=== PATIENT | female | born 2000 | race Caucasian/White ===

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

== ENCOUNTER → 2019-02-22 18:31 | Outpatient (CLI) | payer OTHER, MEDICAID, SELFPAY | PROVIDERS: Family Provider Internal Medicine; PCP Family Medicine; Visit Provider Physician Assistant | DX: J02.9 Acute pharyngitis, unspecified (principal) | CPT/HCPCS: 87070; 87077 ==

== ENCOUNTER → 2019-04-13 15:50 | Outpatient (CLI) | payer OTHER, MEDICAID, SELFPAY ==
--- NOTE | 2019-04-13 15:52 | DI.RAD.S_ITS ---
PROCEDURE: XR RIBS LT MIN 3V W CXR1V INDICATIONS: left rib pain TECHNIQUE: 3 views of the left ribs were acquired, along with a single view chest. COMPARISON: [facility], , T AND L SPINE 2 TO 3 VIEWS, 07/26/2017, 10:01. FINDINGS: Surgical changes and devices: None. Bones and chest wall: No fractures or dislocations. No suspicious bony lesions. Overlying soft tissues appear unremarkable. Mild dextroscoliosis of the midthoracic spine. Lungs and pleura: No pleural effusions or pneumothorax. Lungs appear clear. Mediastinum: Mediastinal contours appear normal. Heart size is normal. IMPRESSION: No displaced left rib fractures. Dictated by: Abdiaziz Hung [facility] Interpreted: Nilam Huffman MD on 04/13/2019 at 16:27 Approved by: Nilam Huffman M.D. on 04/13/2019 at 17:15
== END ==
PROVIDERS: PCP Family Medicine; Visit Provider Family Medicine
DX: S22.32XA Fracture of one rib, left side, initial encounter for closed fracture (principal)
CPT/HCPCS: 71101

== ENCOUNTER 2019-04-23 16:03 | Emergency (ER) | payer OTHER, MEDICAID, SELFPAY ==
[2019-04-23 16:05] VITALS: BP 126/88; PULSE 77; RESP 16; TEMP 36.8; O2SAT 99; BMI 24.7
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
[2019-04-23] MEDS: CODEINE/ACETAMINOPHEN 30/300 TABLET 1 TAB PO (16:46)
[2019-04-23 17:06] VITALS: BP 105/63; PULSE 67; RESP 15; O2SAT 100
== END 2019-04-23 17:07 | disposition home or self-care (01) ==
PROVIDERS: Emergency Provider Emergency Medicine; PCP Family Medicine
DX: S16.1XXA Strain of muscle, fascia and tendon at neck level, initial encounter (principal); V49.50XA Passenger injured in collision with unspecified motor vehicles in traffic accident, initial encounter
CPT/HCPCS: 99282; 99283

== ENCOUNTER → 2020-06-21 09:14 | Outpatient (CLI) | payer OTHER, MEDICAID, SELFPAY ==
--- NOTE | 2020-06-21 09:15 | DI.RAD.S_ITS ---
PROCEDURE: XR RIBS LT MIN 3V W CXR1V INDICATIONS: rib pain on left chronic TECHNIQUE: 2 views of the left ribs were acquired, along with a single view chest. COMPARISON: [facility], CR, XR RIBS LT MIN 3V W CXR1V, 04/13/2019, 16:01. FINDINGS: Surgical changes and devices: Nipple piercings are noted. Bones and chest wall: No fractures or dislocations. No suspicious bony lesions. Overlying soft tissues appear unremarkable. Lungs and pleura: No pleural effusions or pneumothorax. Lungs appear clear. Mediastinum: Mediastinal contours appear normal. Heart size is normal. IMPRESSION: No displaced rib fractures visualized. No acute cardiopulmonary findings. Dictated by: Ana Frizt M.D. on 06/21/2020 at 9:59 Approved by: Ana Fritz M.D. on 06/21/2020 at 9:59
== END ==
PROVIDERS: PCP Family Medicine; Referring Provider Family Medicine; Visit Provider Family Medicine
DX: R07.81 Pleurodynia (principal)
CPT/HCPCS: 71101

== ENCOUNTER 2020-09-16 14:55 | Emergency (ER) | payer OTHER, MEDICAID, SELFPAY ==
[2020-09-16 14:59] VITALS: BP 117/66; PULSE 80; RESP 16; TEMP 37; O2SAT 99
--- NOTE | 2020-09-16 15:08 | DI.RAD.S_ITS ---
PROCEDURE: XR RIBS RT MIN 3V W CXR 1V INDICATIONS: rt side rib/flank pain/tenderness TECHNIQUE: 2 views of the right ribs were acquired, along with a single view chest. COMPARISON: [facility], CR, XR RIBS LT MIN 3V W CXR1V, 06/21/2020, 9:18. FINDINGS: Surgical changes and devices: None. Bones and chest wall: No fractures or dislocations. No suspicious bony lesions. Overlying soft tissues appear unremarkable. Mild scoliosis. Lungs and pleura: No pleural effusions or pneumothorax. Lungs appear clear. Mediastinum: Mediastinal contours appear normal. Heart size is normal. IMPRESSION: No acute cardiopulmonary abnormality. No displaced right-sided rib fracture. Mild scoliosis. Dictated by: Toño Bell M.D. on 09/16/2020 at 15:31 Approved by: Toño Bell M.D. on 09/16/2020 at 15:33
--- NOTE | 2020-09-16 16:07 | DI.US.S_ITS ---
PROCEDURE: US ABDOMEN LIMITED INDICATIONS: RIGHT UPPER QUADRANT PAIN TECHNIQUE: Real-time focused scanning was performed of the abdomen, with image documentation. COMPARISON: None. FINDINGS: Liver measures 13.8 cm in length. There is normal hepatic echotexture. Gallbladder is unremarkable. No sonographic Martin sign. No intra or extrahepatic bile duct dilatation. Pancreas is unremarkable. No right upper quadrant free fluid seen. IMPRESSION: Negative examination as above. Normal appearance of the gallbladder. Dictated by: Sylvain Small M.D. on 09/16/2020 at 16:43 Approved by: Sylvain Small M.D. on 09/16/2020 at 16:46
[2020-09-16] MEDS: ONDANSETRON 4 MG/2 ML INJ IV (16:15)
[2020-09-16] MEDS: KETOROLAC 60 MG/2 ML VIAL 30 MG IV (16:16)
[2020-09-16 16:19] LABS: Add Manual Diff / Slide Review NO; Basophils Absolute Auto 0 /uL (0-100); Basophils Percent Auto 0.6 % (0-2); Eosinophils Absolute Auto 100 /uL (0-450); Eosinophils Percent Auto 1.8 % (2-4); Hematocrit 39.1 % (36-46); Hemoglobin 12.8 g/dL (12.0-16.0); Lymphocytes Absolute Auto 3000 /uL (1100-4500); Lymphocytes Percent Auto 42.9 % (25-40); Mean Corpuscular HGB Conc 32.7 % (30-36); Mean Corpuscular Hemoglobin 30.4 PG (26-34); Monocytes Absolute Auto 400 /uL (0-900); Monocytes Percent Auto 6.1 % (3-14); Neutrophils Absolute Auto 3400 /uL (1500-7000); Neutrophils Percent Auto 48.6 % (50-75); Platelet Count 235 X10^3/uL (150-400); Red Blood Cell Count 4.21 X10^6/uL (4.0-5.2); Red Cell Distribution Width 13.4 % (11.6-14.8)
--- NOTE | 2020-09-16 16:19 | ED.ABDPAIN ---
HPI - Abdominal Pain General Chief Complaint: Abdominal Pain Stated Complaint: RIGHT RIB INJURY THREW UP Time Seen by Provider: 09/16/20 16:02 Source: patient Mode of arrival: Ambulatory Limitations: no limitations History of Present Illness HPI narrative: Patient is a 20-year-old female who presents with right-sided pain and nausea. She says she was doing go carts yesterday and was bumping around she is not sure if she injured it but today she has pretty severe right-sided rib pain but also nausea and vomited once. She vomited 1 time that was dark. She denies any dyspnea or pain with breathing. No fever or chills. She is having some right upper quadrant pain well. She does have a history a rib dislocation on the left for which she receives a lidocaine patch for but she says this feels different. Related Data Home Medications Medication Instructions Recorded Confirmed levonorgestrel 20 mcg/24 hours (6 INTRAUTERINE each 08/06/18 06/21/20 yrs) 52 mg intrauterine device Previous Rx's Medication Instructions Recorded lidocaine 5 % topical patch 1 patch TOP DAILY #30 each 06/21/20 Allergies Allergy/AdvReac Type Severity Reaction Status Date / Time No Known Drug Allergies Allergy Verified 06/21/20 08:38 Review of Systems Review of Systems Narrative: GENERAL: Denies chills, fatigue, malaise, fever, sweats, travel HEENT: Denies sinus pain, ear pain, sore throat, difficulty swallowing, neck pain RESPIRATORY: Denies dyspnea, cough, wheezing, hemoptysis, sputum. CARDIOVASCULAR: Denies chest pain, palpitations, orthopnea, edema GASTROINTESTINAL: The HPI : Denies dysuria, frequency, incontinence, hematuria, urinary retention, flank pain. MUSCULOSKELETAL: See HPI SKIN: No rash, no erythema, no pruritus NEUROLOGIC: Denies weakness, dizziness, headache, numbness, change in speech, confusion PSYCHIATRIC: No concerning psychosocial issues. 12 point review of systems is negative except for those stated above and HPI Patient History Medical History (Updated 09/16/20 @ 16:59 by Michelle Pulido DO) Adolescent depression Scoliosis Self-mutilation Social History marital status: unmarried,single Smoking Status: Current every day smoker alcohol intake: never substance use type: does not use Smoking Status: Current every day smoker alcohol intake frequency: 0-2 drinks per day Substance Use Type: does not use Exam Initial Vital Signs Initial Vital Signs: Vital Signs Temperature 98.6 F 09/16/20 14:59 Pulse Rate 80 09/16/20 14:59 Respiratory Rate 16 09/16/20 14:59 Blood Pressure 117/66 09/16/20 14:59 Pulse Oximetry 99 09/16/20 14:59 GENERAL: Well-appearing, well-nourished and in no acute distress. HEENT: Head atraumatic,EOMI, pupils reactive, face symmetric, moist mucous membranes CARDIOVASCULAR: Regular rate and rhythm without murmurs, rubs or gallops. RESPIRATORY: Breath sounds equal bilaterally, no wheezes rales or rhonchi. No rib pain no contusion or abrasion new rash ABDOMEN: Soft, mild tenderness right upper quadrant negative Normoactive bowel sounds all 4 quadrants. No guarding or rebound. : No CVA tenderness EXTREMITIES: Normal range of motion, no clubbing or edema. Neurovascularly intact NEUROLOGICAL: Alert and oriented x4.Normal gait and speech. SKIN: Warm, dry, no laceration, no petechiae, no rashes or lesions. Course Orders Ordered: ED Orders 09/16/20 15:08 XR ribs RT min 3V w CXR1V Stat 09/16/20 16:05 Complete Blood Count AUTO DIFF Stat Comprehensive Metabolic Panel Stat Lipase Stat 09/16/20 16:07 US abdomen limited Stat Discontinued Medications Ketorolac Tromethamine (Ketorolac 60 Mg/2 Ml Vial) 30 mg IV NOW ONE Stop: 09/16/20 16:08 Last Admin: 09/16/20 16:16 Dose: 30 mg Documented by: DENNIS Ondansetron HCl (Ondansetron 4 Mg/2 Ml Inj) 4 mg IV NOW ONE Stop: 09/16/20 16:08 Last Admin: 09/16/20 16:15 Dose: 4 mg Documented by: DENNIS Vital Signs Vital signs: Vital Signs - 8 hr 09/16/20 14:59 Temperature 98.6 F Pulse Rate 80 Respiratory Rate 16 Blood Pressure 117/66 Pulse Oximetry 99 MDM - Abdominal Pain Lab Data Attestation: I reviewed the patient's lab results. Result diagrams: 09/16/20 16:05 09/16/20 16:05 Labs: Lab Results 09/16/20 09/16/20 Range/Units 16:05 16:05 WBC 7.0 (4.5-11.0) X10^3/uL RBC 4.21 (4.0-5.2) X10^6/uL Hgb 12.8 (12.0-16.0) g/dL Hct 39.1 (36-46) % MCV 93.0 (80-100) fL MCH 30.4 (26-34) PG MCHC 32.7 (30-36) % RDW 13.4 (11.6-14.8) % Plt Count 235 (150-400) X10^3/uL Neut % (Auto) 48.6 L (50-75) % Lymph % (Auto) 42.9 H (25-40) % [place] % (Auto) 6.1 (3-14) % Eos % (Auto) 1.8 L (2-4) % Baso % (Auto) 0.6 (0-2) % Neut # (Auto) 3400 (7234-8112) /uL Lymph # (Auto) 3000 (9021-2073) /uL [place] # (Auto) 400 (0-900) /uL Eos # (Auto) 100 (0-450) /uL Baso # (Auto) 0 (0-100) /uL Sodium 135 L (137-145) mmol/L Potassium 3.6 (3.4-5.1) mmol/L Chloride 106 (98-107) mmol/L Carbon Dioxide 25 (22-32) mmol/L BUN 7 (7-17) mg/dL Creatinine 0.66 (0.52-1.04) mg/dL Estimated GFR > 60.0 (>60) mL/min BUN/Creatinine Ratio 10.6 (6-22) Glucose 87 (70-100) mg/dL Calcium 8.8 (8.4-10.2) mg/dL Total Bilirubin 0.6 (0.2-1.3) mg/dL AST 20 (14-36) IU/L ALT 12 (<35) IU/L Alkaline Phosphatase 49 (38-126) U/L Total Protein 7.0 (6.3-8.2) g/dL Albumin 4.2 (3.5-5.0) g/dL Globulin 2.8 (1.7-4.1) g/dL Albumin/Globulin Ratio 1.5 (1.0-2.8) Lipase 74 (23-300) U/L Point of care testing: Point of Care Testing Test Results Negative Urine Dip Bedside Urine Glucose Negative Bedside Urine Bilirubin - Negative Bedside Urine Ketone - Negative Urine Specific [place] 1.020 Bedside Urine Occult Blood - Negative Bedside Urine pH 7.0 Bedside Urine Protein - Negative Bedside Urine Urobilinogen - Negative Bedside Urine Nitrite - Negative Bedside Urine Leukocytes - Negative Esterase Imaging Data Chest x-ray: Radiologist's Impression: PROCEDURE: XR RIBS RT MIN 3V W CXR 1V INDICATIONS: rt side rib/flank pain/tenderness TECHNIQUE: 2 views of the right ribs were acquired, along with a single view chest. COMPARISON: [facility], , XR RIBS LT MIN 3V W CXR1V, 06/21/2020, 9:18. FINDINGS: Surgical changes and devices: None. Bones and chest wall: No fractures or dislocations. No suspicious bony lesions. Overlying soft tissues appear unremarkable. Mild scoliosis. Lungs and pleura: No pleural effusions or pneumothorax. Lungs appear clear. Mediastinum: Mediastinal contours appear normal. Heart size is normal. IMPRESSION: No acute cardiopulmonary abnormality. No displaced right-sided rib fracture. Mild scoliosis. Dictated by: Toño Bell M.D. on 09/16/2020 at 15:31 US - abdomen: Radiologist's Impression: PROCEDURE: US ABDOMEN LIMITED INDICATIONS: RIGHT UPPER QUADRANT PAIN TECHNIQUE: Real-time focused scanning was performed of the abdomen, with image documentation. COMPARISON: None. FINDINGS: Liver measures 13.8 cm in length. There is normal hepatic echotexture. Gallbladder is unremarkable. No sonographic Martin sign. No intra or extrahepatic bile duct dilatation. Pancreas is unremarkable. No right upper quadrant free fluid seen. IMPRESSION: Negative examination as above. Normal appearance of the gallbladder. Dictated by: Sylvain Small M.D. on 09/16/2020 at 16:43 MDM Narrative Medical decision making narrative: Patient's pain is better after Toradol. Ultrasound and blood work were overall reassuring x-ray is negative. Likely rib contusion. Recommend conservative treatment at this time. Discharge Plan Departure Patient Disposition: Home Clinical Impression: Contusion of rib Qualifiers: Encounter type: initial encounter Laterality: right Qualified Code(s): S20.211A - Contusion of right front wall of thorax, initial encounter Instructions: DI for Rib Contusion Activity Restrictions/Additional Instructions: *You have been diagnosed with right rib contusion *What to do: At this time x-ray and ultrasound blood work her overall reassuring. I recommend ibuprofen and lidocaine patch as previously recommended. Increase activity as tolerated. May try ice or heat to help with pain *Continue to take medications as directed *Follow up with your primary care provider in 2-3 days *Return to ER if you should have increasing pain, shortness of breath or any new, worsening or concerning symptoms Prescriptions: No Action levonorgestrel [Mirena] 20 mcg/24 hr (5 years) intrauterine device Intrauterine RF: 0 lidocaine 5 % adhesive patch,medicated 1 patch TOP DAILY Qty: 30 RF: 1 Referrals: Wolf Hammond MD [Primary Care Provider] -
[2020-09-16 16:32] LABS: Alanine Aminotransferase 12 IU/L (<35); Albumin 4.2 g/dL (3.5-5.0); Albumin Globulin Ratio 1.5 (1.0-2.8); Alkaline Phosphatase 49 U/L (38-126); Aspartate Aminotransferase 20 IU/L (14-36); BUN Creatinine Ratio 10.6 (6-22); Bilirubin Total 0.6 mg/dL (0.2-1.3); Blood Urea Nitrogen 7 mg/dL (7-17); Calcium 8.8 mg/dL (8.4-10.2); Carbon Dioxide 25 mmol/L (22-32); Chloride 106 mmol/L (98-107); Estimated Glomerular Filt Rate > 60.0 mL/min (>60); Globulin 2.8 g/dL (1.7-4.1); Glucose 87 mg/dL (70-100); HEMOLYSIS < 15 (0-50); Lipase 74 U/L (23-300); Potassium 3.6 mmol/L (3.4-5.1); Sodium 135 mmol/L (137-145)
== END 2020-09-16 17:11 | disposition home or self-care (01) ==
PROVIDERS: Emergency Provider Emergency Medicine; PCP Family Medicine
DX: S20.211A Contusion of right front wall of thorax, initial encounter (principal); R11.2 Nausea with vomiting, unspecified; R10.11 Right upper quadrant pain; W22.8XXA Striking against or struck by other objects, initial encounter
CPT/HCPCS: 71101; 76705; 80053; 81003; 81025; 83690; 85025; 96374; 96375; 99281; 99284; J1885; J2405

== ENCOUNTER → 2021-03-05 08:59 | Outpatient (CLI) | payer OTHER, MEDICAID, SELFPAY ==
--- NOTE | 2021-03-05 | DI.RAD.S_ITS ---
PROCEDURE: XR THORACIC SPINE 3V INDICATIONS: Pain in thoracic spine/Scoliosis TECHNIQUE: 3 views of the thoracic spine were acquired. COMPARISON: [facility], CR, XR SCOLIOSIS STUDY, 09/28/2018, 14:16. [facility], [facility], T AND L SPINE 2 TO 3 VIEWS, 07/26/2017, 10:01. FINDINGS: Bones: No fractures or dislocations. No suspicious bony lesions. 12 pairs of ribs are noted, and appear intact where visualized. There is S-shaped scoliotic curvature within the thoracolumbar spine. [place] in the thoracic spine is at T9-10. It is unchanged compared to prior exam. Soft tissues: No paravertebral stripe thickening. IMPRESSION: Unchanged scoliotic curvature. Dictated by: Nilam Huffman M.D. on 03/05/2021 at 10:39 Approved by: Nilam Huffman M.D. on 03/05/2021 at 10:40
== END ==
PROVIDERS: PCP Physician Assistant; Referring Provider Physician Assistant; Visit Provider Physician Assistant
DX: M54.6 Pain in thoracic spine (principal); M41.9 Scoliosis, unspecified
CPT/HCPCS: 72072

== ENCOUNTER → 2021-05-20 12:24 | Outpatient (CLI) | payer OTHER, MEDICAID, SELFPAY ==
[2021-05-20 12:44] LABS: Add Manual Diff / Slide Review NO; Basophils Absolute Auto 0 /uL (0-100); Basophils Percent Auto 0.5 % (0-2); Eosinophils Absolute Auto 100 /uL (0-450); Eosinophils Percent Auto 0.8 % (2-4); Hematocrit 41.3 % (36-46); Hemoglobin 13.7 g/dL (12.0-16.0); Lymphocytes Absolute Auto 2100 /uL (1100-4500); Lymphocytes Percent Auto 23.1 % (25-40); Mean Corpuscular HGB Conc 33.3 % (30-36); Monocytes Absolute Auto 500 /uL (0-900); Monocytes Percent Auto 5.3 % (3-14); Neutrophils Absolute Auto 6400 /uL (1500-7000); Neutrophils Percent Auto 70.3 % (50-75); Platelet Count 246 X10^3/uL (150-400); Red Blood Cell Count 4.43 X10^6/uL (4.0-5.2); Red Cell Distribution Width 13.1 % (11.6-14.8); White Blood Cell Count 9.1 X10^3/uL (4.5-11.0)
[2021-05-20 12:58] LABS: Alanine Aminotransferase 11 IU/L (<35); Albumin 4.2 g/dL (3.5-5.0); Albumin Globulin Ratio 1.5 (1.0-2.8); Alkaline Phosphatase 46 U/L (38-126); Aspartate Aminotransferase 19 IU/L (14-36); BUN Creatinine Ratio 11.5 (6-22); Bilirubin Total 0.7 mg/dL (0.2-1.3); Blood Urea Nitrogen 7 mg/dL (7-17); Calcium 8.8 mg/dL (8.4-10.2); Carbon Dioxide 27 mmol/L (22-32); Chloride 105 mmol/L (98-107); Estimated Glomerular Filt Rate > 60.0 mL/min (>60); Globulin 2.8 g/dL (1.7-4.1); Glucose 92 mg/dL (70-100); HEMOLYSIS < 15 (0-50); Potassium 4.7 mmol/L (3.4-5.1); Sodium 136 mmol/L (137-145)
== END ==
PROVIDERS: PCP Physician Assistant; Referring Provider Physician Assistant; Visit Provider Physician Assistant
DX: R10.31 Right lower quadrant pain (principal)
CPT/HCPCS: 36415; 80053; 85025

== ENCOUNTER → 2021-05-23 13:04 | Outpatient (CLI) | payer OTHER, MEDICAID, SELFPAY ==
--- NOTE | 2021-05-23 14:30 | DI.CT.S_ITS ---
PROCEDURE: CT ABDOMEN PELVIS W CON INDICATIONS: Right lower quadrant pain TECHNIQUE: After the administration of oral and intravenous contrast, axial sections were acquired from the lung bases to the pubic symphysis. Coronal and sagittal reformats were performed. For radiation dose reduction, the following was used: automated exposure control, adjustment of mA and/or kV according to patient size. COMPARISON:None. FINDINGS: Image quality: Excellent. Lung bases: Lung bases are clear. Heart size is normal. Solid organs: Liver: The liver has no mass or intrahepatic biliary ductal dilatation. The portal vein and hepatic veins are patent. Biliary: The gallbladder has no gallstones, pericholecystic fluid, gallbladder wall thickening, or surrounding inflammatory change. Pancreas: The pancreas has no mass or ductal dilatation. There is no surrounding inflammation. Spleen: Normal size. There are no masses. Adrenals: No hypertrophy or nodules. Kidneys: No obstructive calculus or hydronephrosis. No solid mass. No cystic mass. Peritoneum and bowel: The distal esophagus and stomach are normal. The small bowel has a normal caliber and appearance. The terminal ileum is normal. The large bowel has a large amount of stool throughout consistent with constipation. The appendix is normal. No free fluid or air. Nodes and vessels: No retroperitoneal or mesenteric adenopathy by size criteria. Aorta and inferior vena cava are normal in size. Miscellaneous: No abdominal wall mass or hernia. PELVIS: Genitourinary: The bladder has no wall thickening or mass. A large right ovarian cyst is present measuring 5.3 x 4.6 x 5.1 centimeters. An IUD is seen within the uterus in good position. Miscellaneous: No inguinal hernias or adenopathy. Bones: No suspicious bony lesions. No vertebral body compression fractures. IMPRESSION: 1. 5.3 x 4.6 x 5.1 centimeter right ovarian cyst. 2. Constipation. Dictated by: Maik Ortiz M.D. on 05/23/2021 at 15:26 Approved by: Maik Ortiz M.D. on 05/23/2021 at 15:33
== END ==
PROVIDERS: PCP Physician Assistant; Referring Provider Physician Assistant; Visit Provider Physician Assistant
DX: R10.31 Right lower quadrant pain (principal); R10.2 Pelvic and perineal pain; K59.00 Constipation, unspecified; N83.201 Unspecified ovarian cyst, right side; Z97.5 Presence of (intrauterine) contraceptive device
CPT/HCPCS: 74177

== ENCOUNTER → 2021-05-29 11:02 | Outpatient (CLI) | payer OTHER, MEDICAID, SELFPAY ==
--- NOTE | 2021-05-29 | DI.US.S_ITS ---
PROCEDURE: US PELVIC COMPLETE INDICATIONS: PELVIC PAIN TECHNIQUE: Real-time scanning was performed of the pelvic organs, with image documentation. Additional endovaginal scanning was necessary due to incomplete visualization of the adnexal and endometrial structures by transabdominal scanning. COMPARISON: None. FINDINGS: Uterus: Uterus is normal in size at 6.1 x 3.1 x 3.3 cm. The endometrium measures 4-5 mm in combined thickness. IUD is appropriately positioned. Ovaries: Right ovary measures 5.6 x 4.6 x 4.5 cm. Left ovary measures 3.3 x 2.0 x 2.4 cm. There is a 4.7 x 4.4 x 3.7 cm right ovarian cyst with mural irregularity. Other: No pathologic free abdominal or pelvic fluid. IMPRESSION: Irregular right ovarian cyst with mural nodularity, possibly hemorrhagic cyst with retracted clot, however can not exclude other neoplastic possibilities. Consider follow-up in 6 weeks to assess for improvement/resolution. If this finding persists, further evaluation with gynecological MRI could be performed. Appropriately positioned IUD Dictated by: Sylvain Small M.D. on 05/29/2021 at 12:49 Approved by: Sylvain Small M.D. on 05/29/2021 at 12:53
== END ==
PROVIDERS: PCP Physician Assistant; Referring Provider Physician Assistant; Visit Provider Physician Assistant
DX: R10.2 Pelvic and perineal pain (principal); N83.201 Unspecified ovarian cyst, right side
CPT/HCPCS: 76830; 76856

== ENCOUNTER → 2021-07-24 08:13 | Outpatient (CLI) | payer OTHER, MEDICAID, SELFPAY ==
--- NOTE | 2021-07-24 08:15 | DI.US.S_ITS ---
LIMITED ULTRASOUND OF RIGHT BREAST: 07/24/2021 CLINICAL: Palpable right breast lump. No prior exams were available for comparison. Real-time ultrasound of the right breast 12 o'clock region was performed on the area of interest. No discrete cystic or solid mass lesion identified in the area of palpable abnormality. IMPRESSION: NEGATIVE There is no sonographic evidence of malignancy. There is no abnormality seen in the right breast to correspond with the palpable abnormality at 12 o'clock, however, clinical followup is recommended. This exam was interpreted at Station ID: [id number]. Electronically Signed By: New Castaneda M.D. ddp/:07/24/2021 12:14:57 letter sent: Clinical Evaluation Ultrasound BI-RADS: 1 Negative
== END ==
PROVIDERS: PCP Physician Assistant; Referring Provider Internal Medicine; Visit Provider Internal Medicine
DX: N63.15 Unspecified lump in the right breast, overlapping quadrants (principal)
CPT/HCPCS: 76642

== ENCOUNTER → 2022-01-26 08:54 | Outpatient (CLI) | payer OTHER, MEDICAID, SELFPAY ==
--- NOTE | 2022-01-26 | DI.CT.S_ITS ---
PROCEDURE: CT CHEST WO CON INDICATIONS: Intercostal pain TECHNIQUE: Noncontrast 5 mm thick sections acquired from the pulmonary apices to the posterior costophrenic angles. 1 mm lung window, 5 mm thick coronal and sagittal and 7 mm axial MIP reformats were then acquired. For radiation dose reduction, the following was used: automated exposure control, adjustment of mA and/or kV according to patient size. COMPARISON: [facility], CR, XR RIBS LT MIN 3V W CXR1V, 04/13/2019, 16:01. [facility], CT, CT ABDOMEN PELVIS W CON, 05/23/2021, 14:20. FINDINGS: Image quality: Excellent. Lungs and pleura: Left lower lobe subpleural nodular opacity measuring 0.5 cm, (8/224), previously 0.2 cm. No pleural effusions or pneumothorax. Central and peripheral airways are patent and normal in caliber. Mediastinum: Heart size is normal. No pericardial effusion. No mediastinal adenopathy by size criteria. Thoracic aorta and central pulmonary arteries are normal in size. Esophagus is normal in caliber. No hiatal hernia. Bones and chest wall: No suspicious bony lesions. No vertebral body compression fractures. No axillary or supraclavicular adenopathy by size criteria. Thyroid gland is unremarkable. Abdomen: Visualized upper abdominal solid organs and bowel loops appear normal in the absence of contrast. IMPRESSION: No rib fracture. No mass identified. Left lower lobe nodular opacity measuring 0.5 cm. This could represent atelectasis or a pulmonary nodule. The clinical significance is uncertain given its small size. Consider follow-up low-dose CT chest. Mild scoliosis. Dictated by: Toño Bell M.D. on 01/26/2022 at 9:56 Approved by: Toño Bell M.D. on 01/26/2022 at 10:04
== END ==
PROVIDERS: PCP Physician Assistant; Referring Provider Physician Assistant; Visit Provider Physician Assistant
DX: R07.82 Intercostal pain (principal); M41.9 Scoliosis, unspecified
CPT/HCPCS: 71250

== ENCOUNTER → 2022-07-13 09:38 | Outpatient (CLI) | payer OTHER, MEDICAID, SELFPAY ==
--- NOTE | 2022-07-13 | DI.CT.S_ITS ---
PROCEDURE: CT CHEST WO CON INDICATIONS: LUNG NODULE TECHNIQUE: Noncontrast 5 mm thick sections acquired from the pulmonary apices to the posterior costophrenic angles. 1 mm lung window, 5 mm thick coronal and sagittal and 7 mm axial MIP reformats were then acquired. For radiation dose reduction, the following was used: automated exposure control, adjustment of mA and/or kV according to patient size. COMPARISON: [facility], CT, CT CHEST WO CON, 01/26/2022, 9:05. FINDINGS: Image quality: Adequate. Lungs and pleura: No significant interval change in the previously demonstrated 5 mm subpleural density at the lateral left lower lobe (3/228). No consolidation or pleural effusion. Mediastinum: No pericardial effusion. No mediastinal adenopathy by size criteria. Thoracic aorta and central pulmonary arteries are normal in size. Esophagus is normal in caliber. Bones and chest wall: No suspicious bony lesions. No vertebral body compression fractures. No axillary or supraclavicular adenopathy by size criteria. Abdomen: Visualized upper abdominal solid organs and bowel loops appear normal in the absence of contrast. IMPRESSION: No significant interval change in the small left lower lobe subpleural nodular density present on the previous exam. This may represent a small region of scarring and/or atelectasis but a small pulmonary nodule is also possible. As this patient is younger than the age range described in the Fleischner Society guidelines for pulmonary nodule follow-up, any decision to follow this potential nodule by imaging should be based on clinical factors. If indicated could consider follow-up in 12 months or sooner/later at clinical discretion. Dictated by: Lee Dey M.D. on 07/13/2022 at 13:38 Approved by: Lee Dey M.D. on 07/13/2022 at 13:52
== END ==
PROVIDERS: PCP Physician Assistant; Referring Provider Family Medicine; Visit Provider Family Medicine
DX: R91.1 Solitary pulmonary nodule (principal)
CPT/HCPCS: 71250

== ENCOUNTER → 2023-05-24 12:11 | Outpatient (CLI) | payer OTHER, MEDICAID, SELFPAY ==
--- NOTE | 2023-05-24 | DI.US.S_ITS ---
PROCEDURE: US PELVIC COMPLETE INDICATIONS: CRAMPING TECHNIQUE: Real-time scanning was performed of the pelvic organs, with image documentation. Additional endovaginal scanning was necessary due to incomplete visualization of the adnexal and endometrial structures by transabdominal scanning. COMPARISON: [facility], US, US PELVIC COMPLETE, 05/29/2021, 11:42. FINDINGS: Uterus: Uterus is anteverted and normal in size at 8.0 x 2.9 x 3.9 cm. The myometrium is homogeneous. The endometrium measures 2.4 mm combined thickness. Intrauterine device in expected position. Ovaries: The right ovary measures 1.8 x 4.4 x 1.8 cm, with a calculated ovarian volume of 7.3 cc. The left ovary measures 3.3 x 4.6 x 3.4 cm, with a calculated ovarian volume of 15.2 cc. Simple left ovarian cyst measuring 1.7 cm. Less than 12 follicles can be seen in each ovary. No adnexal masses are seen. Other: No pathologic free abdominal or pelvic fluid. IMPRESSION: 1. Intrauterine device in expected position. 2. 1.7 cm simple left ovarian cyst. We strive to produce accurate, complete, and clear reports of imaging services. To assist us in improving patient care, this report was composed using standard report templates and voice recognition software. Therefore, it may contain abnormal punctuation, insertions and/or omissions. Occasional wrong-word or sound-alike substitutions may occur. Though we review the report and make efforts to correct it, we do recommend that the report be read carefully in proper context to recognize any text inaccuracies. Dictated by: Abdiaziz WOODY Interpreted: Lee Ann MD on 05/24/2023 at 13:14 Transcribed by: [email or web address] on 05/24/2023 at 13:15 Approved by: Lee Ann M.D. on 05/25/2023 at 14:17
== END ==
PROVIDERS: PCP Nurse Practitioner Family; Referring Provider Nurse Practitioner Family; Visit Provider Nurse Practitioner Family
DX: N83.292 Other ovarian cyst, left side (principal); R10.31 Right lower quadrant pain; Z97.5 Presence of (intrauterine) contraceptive device
CPT/HCPCS: 76830; 76856; 93975